=== PATIENT | male | born 1985 | race Caucasian/White ===

== ENCOUNTER 2024-05-24 11:50 | Inpatient (IN) | payer OTHER ==
[2024-05-24 12:24] VITALS: BMI 35.0
[2024-05-24] MEDS ORDERED: IBUPROFEN 400 MG TABLET (FP) PO PRN (12:55)
[2024-05-24] MEDS ORDERED: NALOXONE (NARCAN) HCL 4 MG/0.1 ML SPRAY NS PRN (12:55)
[2024-05-24] MEDS ORDERED: POLYETHYLENE GLYCOL (HEALTHYLAX) 3350 17 GM PACKET PO PRN (12:55)
[2024-05-24] MEDS ORDERED: ONDANSETRON *ODT* 4 MG TABLET SL PRN (12:55)
[2024-05-24] MEDS ORDERED: ACETAMINOPHEN 325 MG TABLET (FP) PO PRN (12:55)
[2024-05-24] MEDS ORDERED: BENZONATATE 200 MG CAPSULE PO PRN (12:55)
[2024-05-24] MEDS ORDERED: MAGNESIUM HYDROX 2400MG/30ML ORAL SUSPENSION 30 ML CUP PO PRN (12:55)
[2024-05-24] MEDS ORDERED: BISMUTH SUBSALICYLATE 524 MG/30 ML PO PRN (12:55)
[2024-05-24] MEDS ORDERED: NICOTINE POLACRILEX 2 MG GUM BUC PRN (12:55)
[2024-05-24] MEDS ORDERED: LOPERAMIDE HCL 2 MG CAPSULE PO PRN (12:55)
[2024-05-24] MEDS ORDERED: DICYCLOMINE HCL 10 MG CAPSULE PO PRN (12:55)
[2024-05-24] MEDS ORDERED: guaiFENesin 600 MG TABLET.ER (FP) PO PRN (12:55)
[2024-05-24] MEDS ORDERED: BENZOCAINE/MENTHOL (CHLORASEPTIC ) LOZENGE MM PRN (12:55)
[2024-05-24] MEDS ORDERED: P-EPHED 60MG/TRIPROLIDI 2.5MG TABLET PO PRN (12:55)
[2024-05-24] MEDS ORDERED: MAG HYDROX/AL HYDROX/SIMETH 30 ML UNIT-DOSE CUP PO PRN (12:55)
[2024-05-24] MEDS: chlordiazePOXIDE HCL 25 MG CAPSULE PO ONE (13:57)
[2024-05-24] MEDS: chlordiazePOXIDE HCL 25 MG CAPSULE PO SCH (17:30)
[2024-05-24] MEDS: IBUPROFEN 600 MG TABLET (FP) PO PRN (17:32)
[2024-05-24] MEDS: methaDONE HCL 10 MG TABLET PO ONE (19:24)
[2024-05-24] MEDS: METHOCARBAMOL 500 MG TABLET PO PRN (22:31)
[2024-05-24] MEDS: MELATONIN 5 MG TABLETS PO SCH (22:31)
[2024-05-24] MEDS: THIAMINE 100 MG TABLET PO SCH (22:32)
[2024-05-24] MEDS: NICOTINE POLACRILEX 2 MG LOZENGE BC PRN (23:00)
[2024-05-25] MEDS ORDERED: methaDONE HCL 40 MG DISPERSABLE TABLET PO SCH (06:00)
[2024-05-25] MEDS: methaDONE 240 MG, methaDONE 30 MG PO SCH (06:03)
[2024-05-25] MEDS: PRENATAL VITAMINS W/ FOLIC ACID TABLET (FP) PO SCH (10:04)
[2024-05-25] MEDS: SERTRALINE HCL 50 MG TABLET (FP) PO SCH (10:04)
[2024-05-25] MEDS: DULoxetine HCL 30 MG CAPSULE.DR PO SCH (10:38)
[2024-05-25] MEDS: NICOTINE 21 MG/24 HOURS TOPICAL PATCH TD SCH (10:39)
[2024-05-25] MEDS: chlordiazePOXIDE HCL 25 MG CAPSULE PO PRN (12:48)
[2024-05-25] MEDS: GABAPENTIN 300 MG CAPSULE PO SCH (13:17)
[2024-05-25 15:16] LABS: HEMATOCRIT 37.5 % (35.4-49); HEMOGLOBIN 12.6 GM/dL (11.7-16.9); MCH 32.9 pg (25.7-33.7); MCHC 33.7 g/dl (32.0-35.9); MEAN CELL VOLUME 97.8 fl (80-96); MEAN PLT VOLUME 9.5 fl (7.5-11.1); PLATELET COUNT 189 10^3/uL (134-434); RBC 3.84 M/mm3 (4.00-5.60); RDW 13.8 % (11.9-15.9); WHITE BLOOD COUNT 5.4 K/mm3 (4.0-10.0)
[2024-05-25] MEDS: CLOTRIMAZOLE 1% CREAM TP SCH (15:37)
[2024-05-25 16:58] LABS: POTASSIUM 4.1 mmol/L (3.5-5.1)
[2024-05-25 17:03] LABS: ALBUMIN 3.8 g/dl (3.4-5.0); BLOOD UREA NITROGEN 14.7 mg/dL (7-18); CALCIUM 9.4 mg/dL (8.5-10.1)
[2024-05-25 17:07] LABS: BILIRUBIN,TOTAL 0.4 mg/dL (0.2-1); TOT PROT 7.2 g/dl (6.4-8.2)
[2024-05-25] MEDS: MIRTAZAPINE 15 MG TABLET (FP) PO SCH (22:28)
[2024-05-26] MEDS: chlordiazePOXIDE HCL 25 MG CAPSULE PO SCH (05:58)
[2024-05-26] MEDS: FERROUS SO4 325 MG TABLET (FP) PO SCH (12:04)
[2024-05-27] MEDS: chlordiazePOXIDE HCL 10 MG CAPSULE PO SCH (05:55)
[2024-05-27] MEDS: chlordiazePOXIDE HCL 10 MG CAPSULE PO PRN (12:45)
[2024-05-28] MEDS: chlordiazePOXIDE HCL 10 MG CAPSULE PO SCH (05:30)
[2024-05-28] MEDS: chlordiazePOXIDE HCL 10 MG CAPSULE PO PRN (22:27)
[2024-05-29] MEDS: chlordiazePOXIDE HCL 10 MG CAPSULE PO ONE (05:47)
[2024-05-29 08:56] VITALS: BP 128/69; PULSE 91; RESP 16; TEMP 97.1
[2024-05-29] MEDS: NALOXONE (NYS OPIOID OVERDOSE PROGRAM) 4 MG/0.1 ML SPRAY NS PRN (09:30)
== END 2024-05-29 09:36 | disposition home or self-care (01) | DRG 773 ==
LOC: YASAS 11:50 → Y6N 13:34
PROVIDERS: ADMIT Allergy & Immunology; ATTEND Surgery
PROC: HZ2ZZZZ Detoxification Services for Substance Abuse Treatment (ICD-10-PCS; principal; 2024-05-24)
DX: F10.230 Alcohol dependence with withdrawal, uncomplicated (principal); F13.20 Sedative, hypnotic or anxiolytic dependence, uncomplicated; F11.20 Opioid dependence, uncomplicated; F17.210 Nicotine dependence, cigarettes, uncomplicated; F19.282 Other psychoactive substance dependence with psychoactive substance-induced sleep disorder; F19.280 Other psychoactive substance dependence with psychoactive substance-induced anxiety disorder; F19.24 Other psychoactive substance dependence with psychoactive substance-induced mood disorder; F39 Unspecified mood [affective] disorder; D50.9 Iron deficiency anemia, unspecified; Z59.00 Homelessness unspecified
CPT/HCPCS: 36415; 80053; 80305; 80307; 85027; 86780; 93005; 93010